=== PATIENT | female | born 2000 | race Two or more races ===

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

== ENCOUNTER 2018-05-09 01:32 | Emergency (ER) | payer SELFPAY ==
[~2018-05-09] VITALS: Ht 157.5 cm; Wt 68.0 kg
[~2018-05-09 01:32] MED LIST changes: +CYCL10TA2 PO; +NAPR-514 PO
--- NOTE | 2018-05-09 02:16 | PHYS DOC ---
Past Medical History Past Medical History: Asthma, Other Additional Past Medical Histor: Genital herpes Past Surgical History: No Surgical History Alcohol Use: Occasionally Drug Use: Marijuana Adult General Chief Complaint Chief Complaint: SEIZURE HPI HPI Patient is a 17 year old female who presents with nausea and vomiting after seizure like activity. She was at home, seated in the room with her roommate. She doesn't fell to the floor, had generalized tonic-clonic seizure-like activity for 2 minutes with loss of bladder control and tongue biting. She then became postictal and had nausea and vomiting. 911 was called and EMS gave her Zofran. She vomited after Zofran as well. She presents to the emergency department and on my exam states that she feels much better but she does not recall the events of today. She denies any previous seizures. She denies any Ultram use, antidepressants, new medications. Review of Systems Review of Systems Constitutional: Denies fever or chills, does admit to recent decreased appetite Eyes: Denies change in visual acuity, redness, or eye pain HENT: Denies nasal congestion or sore throat Respiratory: Denies cough or shortness of breath Cardiovascular: No additional information not addressed in HPI GI: Denies abdominal pain, nausea, vomiting, bloody stools or diarrhea : Denies dysuria or hematuria Musculoskeletal: Denies back pain or joint pain Integument: Denies rash or skin lesions Neurologic: Denies headache, focal weakness or sensory changes Endocrine: Denies polyuria or polydipsia All other systems were reviewed and found to be within normal limits, except as documented in this note. Current Medications Current Medications none Allergies Allergies Allergies Coded Allergies Type Severity Reaction Last Updated Verified No Known Drug Allergies 04/09/16 No Physical Exam Physical Exam GENERAL: Awake, alert, well appearing, nontoxic HEAD/NECK/EYES: Normocephalic, Neck supple, PERRL ENT Airway patent, mucous membranes moist , tiny macerated tissue spots in the mouth consistent with tongue trauma from seizure RESP: Nontachypneic, no respiratory distress, normal breath sounds bilaterally CV: Regular rhythm, normal perfusion ABD/GI: Soft, non-tender, no guarding, no rebound, no palpable pulsatile mass BACK: Inspection NL EXT: Neurovascularly intact, no deformities SKIN: Warm, dry NEURO: Oriented X3, normal speech, no motor deficits, no sensory deficits, CN II - XII intact PSYCH: Cooperative, appropriate affect Current Patient Data Vital Signs Vital Signs Date Time Temp Pulse Resp B/P (MAP) Pulse Ox O2 Delivery O2 Flow Rate FiO2 05/09/18 01:35 98.9 107 20 119/64 (82) 98 Room Air 98.9 Lab Values Laboratory Tests Test 05/09/18 02:45 05/09/18 03:00 05/09/18 03:02 White Blood Count 11.0 x10^3/uL (4.0-11.0) Red Blood Count 4.51 x10^6/uL (3.50-5.40) Hemoglobin 14.7 g/dL (12.0-15.5) Hematocrit 41.5 % (36.0-47.0) Mean Corpuscular Volume 92 fL (79-100) Mean Corpuscular Hemoglobin 33 pg (25-35) Mean Corpuscular Hemoglobin Concent 35 g/dL (31-37) Red Cell Distribution Width 12.1 % (11.5-14.5) Platelet Count 253 x10^3/uL (140-400) Neutrophils (%) (Auto) 78 % (31-73) H Lymphocytes (%) (Auto) 13 % (24-48) L Monocytes (%) (Auto) 7 % (0-9) Eosinophils (%) (Auto) 1 % (0-3) Basophils (%) (Auto) 0 % (0-3) Neutrophils # (Auto) 8.5 x10^3uL (1.8-7.7) H Lymphocytes # (Auto) 1.5 x10^3/uL (1.0-4.8) Monocytes # (Auto) 0.8 x10^3/uL (0.0-1.1) Eosinophils # (Auto) 0.1 x10^3/uL (0.0-0.7) Basophils # (Auto) 0.0 x10^3/uL (0.0-0.2) Sodium Level 139 mmol/L (136-145) Potassium Level 3.6 mmol/L (3.5-5.1) Chloride Level 103 mmol/L (98-107) Carbon Dioxide Level 25 mmol/L (21-32) Anion Gap 11 (6-14) Blood Urea Nitrogen 8 mg/dL (7-20) Creatinine 0.8 mg/dL (0.6-1.0) Estimated GFR (Cockcroft-Gault) 92.4 BUN/Creatinine Ratio 10 (6-20) Glucose Level 124 mg/dL (70-99) H Calcium Level 9.5 mg/dL (8.5-10.1) Total Bilirubin 0.5 mg/dL (0.2-1.0) Aspartate Amino Transferase (AST) 17 U/L (15-37) Alanine Aminotransferase (ALT) 24 U/L (14-59) Alkaline Phosphatase 47 U/L (46-116) Total Protein 7.9 g/dL (6.4-8.2) Albumin 4.4 g/dL (3.4-5.0) Albumin/Globulin Ratio 1.3 (1.0-1.7) Urine Collection Type Unknown Urine Color Yellow Urine Clarity Clear Urine pH 6.0 Urine Specific [place] 1.015 Urine Protein 30 mg/dL (NEG-TRACE) Urine Glucose (UA) Negative mg/dL (NEG) Urine Ketones (Stick) 40 mg/dL (NEG) Urine Blood Trace (NEG) Urine Nitrite Negative (NEG) Urine Bilirubin Negative (NEG) Urine Urobilinogen Dipstick 0.2 mg/dL (0.2 mg/dL) Urine Leukocyte Esterase Small (NEG) Urine RBC Occ /HPF (0-2) Urine WBC 1-4 /HPF (0-4) Urine Squamous Epithelial Cells Mod /LPF Urine Bacteria Few /HPF (0-FEW) Urine Hyaline Casts Few /HPF Urine Mucus Mod /LPF Urine Yeast Present /HPF POC Urine HCG, Qualitative Hcg negative (Negative) Laboratory Tests 05/09/18 02:45 Laboratory Tests 05/09/18 02:45 EKG EKG [] Radiology/Procedures Radiology/Procedures [] PATIENT: RACHEL GRACIA ACCOUNT: [id number] : 2000 LOCATION: ER AGE: 17 SEX: F EXAM STATUS: REG ER ORD. PHYSICIAN: ANUM ISAAC DO REASON: first time seizure, headache PROCEDURE: CT HEAD WO CONTRAST INDICATION: FIRST SEIZURE, BLACKED OUT.
NO PRIORS COMPARISON: None. TECHNIQUE: Axial CT images obtained through the head without intravenous contrast. One or more of the following individualized dose reduction techniques were utilized for this examination: 1. Automated exposure control; 2. Adjustment of the mA and/or kV according to patient size; 3. Use of iterative reconstruction technique. FINDINGS: No intracranial hemorrhage. No midline shift. Basal cisterns patent. Ventricles and sulci are unremarkable. No acute osseous abnormality. Orbits and paranasal sinuses unremarkable. IMPRESSION: 1. No acute intracranial hemorrhage. Electronically signed by: Ulices Bowser MD (05/09/2018 4:13 AM) [facility] DICTATED and SIGNED BY: ULICES BOWSER MD DATE: 05/09/18 0357 Impressions: Generalized Seizure, new onset Course & Med Decision Making Course & Med Decision Making Pertinent Labs and Imaging studies reviewed. (See chart for details) [] Dragon Disclaimer Dragon Disclaimer This electronic medical record was generated, in whole or in part, using a voice recognition dictation system. Departure Departure Impression: Primary Impression: Generalized seizure Referrals: NO PCP (PCP) ANUM ISAAC DO May 09, 2018 02:16
[2018-05-09 03:11] LABS: BASO % 0 % (0-3); EOS # 0.1 x10^3/uL (0.0-0.7); EOS % 1 % (0-3); HEMATOCRIT 41.5 % (36.0-47.0); HEMOGLOBIN 14.7 g/dL (12.0-15.5); LYMPH # 1.5 x10^3/uL (1.0-4.8); LYMPH % 13 % (24-48); MEAN CORPUSCULAR HEMOGLOBIN 33 pg (25-35); MEAN CORPUSCULAR HGB CONC 35 g/dL (31-37); MEAN CORPUSCULAR VOLUME 92 fL (79-100); MONO # 0.8 x10^3/uL (0.0-1.1); MONO % 7 % (0-9); NEUT # 8.5 x10^3uL (1.8-7.7); NEUT % 78 % (31-73); PLATELET COUNT 253 x10^3/uL (140-400); RED BLOOD COUNT 4.51 x10^6/uL (3.50-5.40); RED CELL DISTRIBUTION WIDTH 12.1 % (11.5-14.5)
[2018-05-09 03:14] LABS: BILIRUBIN,URINE NEGATIVE (NEG); CLARITY,URINE CLEAR; COLOR,URINE YELLOW; NITRITE,URINE NEGATIVE (NEG); PROTEIN,URINE 30 mg/dL (NEG-TRACE); UROBILINOGEN,URINE 0.2 mg/dL (0.2 mg/dL)
[2018-05-09 03:23] LABS: CALCIUM 9.5 mg/dL (8.5-10.1); CREATININE 0.8 mg/dL (0.6-1.0); GFR 92.4; POTASSIUM 3.6 mmol/L (3.5-5.1)
[2018-05-09 03:24] LABS: BACTERIA,URINE FEW /HPF (0-FEW); HYALINE CASTS, URINE FEW /HPF; RBC,URINE OCC /HPF (0-2); SQUAMOUS EPITHELIAL CELL,UR MOD /LPF; YEAST,URINE PRESENT /HPF
[2018-05-09 03:35] LABS: ALBUMIN 4.4 g/dL (3.4-5.0); ALBUMIN/GLOBULIN RATIO 1.3 (1.0-1.7); TOTAL BILIRUBIN 0.5 mg/dL (0.2-1.0); TOTAL PROTEIN 7.9 g/dL (6.4-8.2)
--- NOTE | 2018-05-09 04:17 | RAD ---
INDICATION: FIRST SEIZURE, BLACKED OUT.
NO PRIORS COMPARISON: None. TECHNIQUE: Axial CT images obtained through the head without intravenous contrast. One or more of the following individualized dose reduction techniques were utilized for this examination: 1. Automated exposure control; 2. Adjustment of the mA and/or kV according to patient size; 3. Use of iterative reconstruction technique. FINDINGS: No intracranial hemorrhage. No midline shift. Basal cisterns patent. Ventricles and sulci are unremarkable. No acute osseous abnormality. Orbits and paranasal sinuses unremarkable. IMPRESSION: 1. No acute intracranial hemorrhage. Electronically signed by: Angel Bailey MD (05/09/2018 4:13 AM) [facility]
[2018-05-09 04:30] VITALS: BP 111/83
[2018-05-09] MEDS ORDERED: LEVE500T56 PO (04:39)
[2018-05-09] MEDS ORDERED: levETIRAcetam 500 MG TABLET PO ONE (04:45)
[2018-05-09] MEDS ORDERED: ACETAMINOPHEN 500 MG TABLET PO ONE (04:45)
[2018-05-09] MEDS ORDERED: ONDANSETRON PF 4 MG/2 ML VIAL. IV ONE (05:00)
--- NOTE | 2018-05-09 06:49 | EKG ---
[facility] [address] [place] [address] Test Date: 2018-05-09 Test Time: 04:14:53 Pat Name: RACHEL GRACIA Department: Room: Gender: F Pear Picker: [id number] : 2000 Requested By: ANUM ISAAC Order Number: [id number] Reading MD: Abbe Pires Measurements Intervals [place] Rate: 64 P: 26 MD: 144 QRS: 12 QRSD: 76 T: 24 QT: 390 QTc: 406 Interpretive Statements SINUS RHYTHM NORMAL ECG RI6.01 Compared to ECG 04/09/2016 22:01:20 No significant changes Electronically Signed On 05-09-2018 16:31:49 CDT by Abbe Pires
== END 2018-05-09 05:10 | disposition home or self-care (01) ==
LOC: ER 01:32
DX: R56.9 Unspecified convulsions (principal); R11.2 Nausea with vomiting, unspecified; J45.909 Unspecified asthma, uncomplicated
CPT/HCPCS: 36415; 70450; 80053; 81001; 81025; 85025; 87086; 93005; 96374; 99285; J2405

== ENCOUNTER 2018-06-06 14:12 | Emergency (ER) | payer SELFPAY ==
[~2018-06-06] VITALS: Ht 157.5 cm; Wt 68.0 kg
[~2018-06-06 14:12] MED LIST changes: +LEVE500T56 PO
[2018-06-06 14:45] VITALS: BP 112/64
[2018-06-06] MEDS ORDERED: HYDROcodone/APAP 5/325MG 1 TAB TABLET PO ONE (15:00)
--- NOTE | 2018-06-06 15:21 | PHYS DOC ---
Past Medical History Past Medical History: Asthma, Other Additional Past Medical Histor: Genital herpes Past Surgical History: No Surgical History Alcohol Use: Occasionally Drug Use: Marijuana Adult General Chief Complaint Chief Complaint: FOOT INJURY PAIN HPI HPI Patient is a 18 year old female who presents with to [facility] on 06/03/40 fall down 14 stairs. Patient states that there is a foreign body in the bottom of her left heel that they saw upon ultrasound only and they did not pick it out or give her follow-up care instructions. Patient states that she is limping cannot walk on the foot. Patient is demanding that we take the foreign body out or to transfer her somewhere else and to give her pain medications. Review of Systems Review of Systems Constitutional: Denies fever or chills [] Eyes: Denies change in visual acuity, redness, or eye pain [] HENT: Denies nasal congestion or sore throat [] Respiratory: Denies cough or shortness of breath [] Cardiovascular: No additional information not addressed in HPI [] GI: Denies abdominal pain, nausea, vomiting, bloody stools or diarrhea [] : Denies dysuria or hematuria [] Musculoskeletal: Left heel pain with foreign body. Denies back pain or joint pain [] Integument: Denies rash or skin lesions [] Neurologic: Denies headache, focal weakness or sensory changes [] Endocrine: Denies polyuria or polydipsia [] All other systems were reviewed and found to be within normal limits, except as documented in this note. Current Medications Current Medications Current Medications Medications (Trade) Dose Ordered Sig/[facility] Start Time Stop Time Status Last Admin Dose Admin Acetaminophen/ Hydrocodone Bitart (Lortab 5/325) 1 tab 1X ONCE 06/06/18 15:00 06/06/18 15:01 DC 06/06/18 15:16 1 TAB Allergies Allergies Allergies Coded Allergies Type Severity Reaction Last Updated Verified No Known Drug Allergies 04/09/16 No Physical Exam Physical Exam Constitutional: Well developed, well nourished, no acute distress, non-toxic appearance. [] HENT: Normocephalic, atraumatic, bilateral external ears normal, oropharynx moist, no oral exudates, nose normal. [] Eyes: PERRLA, EOMI, conjunctiva normal, no discharge. [] Neck: Normal range of motion, no tenderness, supple, no stridor. [] Cardiovascular:Heart rate regular rhythm, no murmur [] Lungs & Thorax: Bilateral breath sounds clear to auscultation [] Abdomen: Bowel sounds normal, soft, no tenderness, no masses, no pulsatile masses. [] Skin: Warm, dry, no erythema, no rash. [] Back: No tenderness, no CVA tenderness. [] Extremities: Left calcaneus tenderness, Black speck seen through skin and is possible foreign body, no cyanosis, no clubbing, ROM intact, no edema. [] Neurologic: Alert and oriented X 3, normal motor function, normal sensory function, no focal deficits noted. [] Psychologic: Affect normal, judgement normal, mood normal. [] Current Patient Data Vital Signs Vital Signs Date Time Temp Pulse Resp B/P (MAP) Pulse Ox O2 Delivery O2 Flow Rate FiO2 06/06/18 14:45 98.2 82 16 112/64 (80) 97 Room Air 98.2 EKG EKG [] Radiology/Procedures Radiology/Procedures [] Course & Med Decision Making Course & Med Decision Making Patient is a 18 year old female who presents with to [facility] on 06/03/40 fall down 14 stairs. Patient states that there is a foreign body in the bottom of her left heel that they saw upon ultrasound only and they did not pick it out or give her follow-up care instructions. Patient states that she is limping cannot walk on the foot. Patient is demanding that we take the foreign body out or to transfer her somewhere else and to give her pain medications. The patient is told that to get the foreign body removed, if there indeed is one, that she will have to follow up with podiatry. Patient is "not happy and does not understand why we can not just take it out and states that what if it gets infected, are you just going to send me out like this?" Patient rates her pain a 7 out of 10. Patient states she is not taking anything for pain. Her last menses was May 16. Alert and Oriented. Lungs are clear to auscultation. heart rate regular and without murmur. Neurologically intact. Patient denies dizziness, nausea, vomiting, or syncopal episodes. Patient denies cervical spine pain and states she is only here for her foot and wants it taken care of. On the bottom of patient left heel there is a black speck that can be seen through the skin. There are no signs of infection, redness, or swelling. Patient is afebrile. I have given the patient one Mj and have requested the chart from the patient [facility] visit. [facility] medical records came back with a ultrasound soft tissue of the patient's affected he'll states there is a possible 1.11.3 1.3 mm retained foreign body proximal me 5-6 mm from skin surface without significant associated fluid collection or soft tissue changes concerning for infection or inflammation. They also did a tib-fib 2 view with no acute findings and a foot 2 views with no acute findings. Patient was given Boostrix and Toradol in the ED for pain. And sent home with naproxen for pain control to follow-up with [facility] within a week and to return to the ER if pain became worse or there are signs of infection. Patient will be given the same follow-up instructions. Give the patient one Mj here in the ED. upon getting patient discharge instructions patient is very upset and states that "I expect you to x- ray my foot and you guys are and bunch of wasted resources." Patient then walks out of the ER with steady gait and is not limping on her effected foot. [] Dragon Disclaimer Dragon Disclaimer This electronic medical record was generated, in whole or in part, using a voice recognition dictation system. Departure Departure Impression: Primary Impression: Foot pain Disposition: 01 HOME, SELF-CARE Condition: STABLE Referrals: NO PCP (PCP) MÓNICA MURPHY DPM Patient Instructions: Foot Contusion Additional Instructions: Follow up with Podiatry or with [facility] as instructed by [facility] as soon as possible. [facility] [phone] Problem Qualifiers Primary Impression: Foot pain Laterality: left Qualified Codes: M79.672 - Pain in left foot MAXX HOLDER JEWEL WAXER Jun 06, 2018 15:21
== END 2018-06-06 16:34 | disposition home or self-care (01) ==
LOC: ER 14:12
DX: M79.672 Pain in left foot (principal); J45.909 Unspecified asthma, uncomplicated
CPT/HCPCS: 99282